=== PATIENT | female | born 2000 | race American Indian/Alaskan Native ===

== ENCOUNTER 2018-09-21 16:17 | Emergency (ER) | payer MEDICAID ==
[2018-09-21] MEDS ORDERED: SUBLIMAZE IV ONE (16:26)
[2018-09-21] MEDS ORDERED: NACL 0.9% 1000 ML 1,000 ML IV ONE (16:26)
--- NOTE | 2018-09-21 16:27 | Emergency Department Report ---
ED Female HPI - General Chief complaint: Vaginal Bleeding Stated complaint: MISCARRIAGE Time Seen by Provider: 09/21/18 16:21 Source: patient, family, EMS (ems notes not available at time of chart dictation) Mode of arrival: Stretcher Limitations: No Limitations - History of Present Illness Initial comments: This is a 18-year-old female. She is 3, para 0. Last menstrual period is June 03. Follows with " [facility]" mobile tester, also following with [facility], although she is not certain why. She reports no significant or chronic medical conditions. She presents to the emergency room today with complaints of vaginal bleeding, cramping, and lower abdominal discomfort. Reports that she had an ultrasound yesterday at [place], which demonstrated "no heartbeat." She denies headache, neck pain, chest pain, upper abdominal pain, irritative, obstructive urinary symptoms. Has reportedly used one to 2 pads in the past few hours. Bleeding is intermittent, cramping is intermittent, does not radiate anywhere, and does not appear to have exacerbating or relieving factors. MD Complaint: vaginal bleeding, pelvic pain -: Gradual Location: suprapubic Radiation: non-radiating Severity: moderate Quality: cramping Consistency: intermittent Improves with: other Worsens with: other Are you Now?: Yes Associated Symptoms: vaginal bleeding, abdominal pain - Related Data Previous Rx's Medication Instructions Recorded Last Taken Type Acetaminophen [Tylenol Arthritis] 650 mg PO Q6HR PRN #30 tablet.er 09/21/18 Unknown Rx Ibuprofen [Motrin] 600 mg PO Q8H PRN #30 tablet 09/21/18 Unknown Rx Allergies Allergy/AdvReac Type Severity Reaction Status Date / Time No Known Allergies Allergy Unverified 03/31/14 22:06 ED Review of Systems ROS: Stated complaint: MISCARRIAGE Other details as noted in HPI Constitutional: malaise. denies: fever Eyes: denies: vision change ENT: denies: epistaxis Respiratory: denies: cough Cardiovascular: denies: chest pain Gastrointestinal: abdominal pain Genitourinary: abnormal menses. denies: dysuria Musculoskeletal: denies: back pain Skin: denies: lesions Neurological: weakness Psychiatric: anxiety ED Past Medical Hx - Social History Smoking Status: Current Every Day Smoker Substance Use Type: None - Medications Home Medications: Home Medications Medication Instructions Recorded Confirmed Last Taken Type Acetaminophen [Tylenol Arthritis] 650 mg PO Q6HR PRN #30 tablet.er 09/21/18 Unknown Rx Ibuprofen [Motrin] 600 mg PO Q8H PRN #30 tablet 09/21/18 Unknown Rx ED Physical Exam - General Limitations: No Limitations General appearance: alert, in no apparent distress, anxious - Head Head exam: Present: atraumatic, normocephalic - Eye Eye exam: Present: normal appearance, EOMI. Absent: nystagmus - ENT ENT exam: Present: normal exam, normal orophraynx, mucous membranes moist, normal external ear exam - Neck Neck exam: Present: normal inspection, full ROM. Absent: tenderness, meningismus - Respiratory Respiratory exam: Present: normal lung sounds bilaterally. Absent: respiratory distress - Cardiovascular Cardiovascular Exam: Present: regular rate, normal rhythm, normal heart sounds. Absent: bradycardia, tachycardia, irregular rhythm, systolic murmur, diastolic murmur, rubs, gallop - GI/Abdominal GI/Abdominal exam: Present: soft, tenderness, other (lower abdominal tenderness, minimal, no rebound, guarding or peritoneal signs, no isolated right lower quadrant tenderness, no right upper quadrant tenderness. Negative Fraire sign. Negative Rovsing exam.). Absent: distended, guarding, rebound, rigid, pulsatile mass - External exam: Present: normal external exam, other (chaperoned by nurse Britney Cook). Absent: erythema, swelling, lesions, lacerations, ecchymosis Speculum exam: Present: vaginal bleeding - Extremities Exam Extremities exam: Present: normal inspection, full ROM, other (2+ pulses noted in the bilateral upper, lower extremities. Compartments soft. No long bony tenderness. The pelvis is stable.). Absent: pedal edema, joint swelling, calf tenderness - Back Exam Back exam: Present: normal inspection, full ROM. Absent: tenderness, CVA tenderness (R), paraspinal tenderness, vertebral tenderness - Neurological Exam Neurological exam: Present: alert, oriented X3, CN II-XII intact, other (Extraocular movements intact. Tongue midline. No facial droop. Facial sensation intact to light touch in the V1, V2, V3 distribution bilaterally. 5 and 5 strength in 4 extremities.. Sensation is intact to light touch in 4 extremities.). Absent: motor sensory deficit - Psychiatric Psychiatric exam: Present: normal affect, normal mood - Skin Skin exam: Present: warm, dry, intact, normal color. Absent: rash ED Course Vital Signs 09/21/18 09/21/18 09/21/18 16:21 16:30 16:45 Temperature 98.2 F 98.4 F Pulse Rate 72 81 Respiratory 19 18 18 Rate Blood Pressure 141/75 139/66 [Left] - Reevaluation(s) Reevaluation #1: 09/21/18 16:55 Differential diagnosis, including but not limited to: Miscarriage, demise, placenta previa Assessment and plan: 18-year-old female who is approximately in her second trimester, with lower abdominal cramping, vaginal bleeding, and reported recent ultrasound at another hospital suggestive of demise. We will treat her pain, give her IV fluids, obtain ultrasound. We will reassess. Reevaluation #2: 09/21/18 18:21 While in the emergency room, patient passed large amount of tissue. Discussed with terminal clerk broadcast operations manager, Dr. Akins, who requested callback once ultrasound has resulted. Patient found to be Rh+. Reevaluation #3: 09/21/18 19:40 Urinalysis reviewed, not consistent with bacterial cystitis. Ultrasound interpretation is pending at this time. Reevaluation #4: 09/21/18 20:01 Ultrasound to my interpretation appears to have no intrauterine contents. Formal interpretation is pending. Discussed this with terminal clerk, Dr. René ryan. We agree that patient may be discharged if the ultrasound is formally interpreted is unremarkable, and the patient will be instructed to follow-up with her outpatient MOLD MAKER HELPER doctor within the next 24-48 hours for repeat evaluation and examination. Patient's formal ultrasound has been interpreted, and demonstrates no evidence of intrauterine . 09/21/18 20:02 ED Medical Decision Making - Lab Data Result diagrams: 09/21/18 16:35 09/21/18 16:35 Vital Signs 09/21/18 16:21 Temperature 98.2 F Pulse Rate 72 Respiratory 19 Rate Blood Pressure 141/75 [Left] Lab Results 09/21/18 Range/Units 16:35 WBC 13.6 H (4.5-11.0) K/mm3 RBC 4.35 (3.65-5.03) M/mm3 Hgb 12.6 (10.1-14.3) gm/dl Hct 38.4 (30.3-42.9) % MCV 88 (79-97) fl MCH 29 (28-32) pg MCHC 33 (30-34) % RDW 14.4 (13.2-15.2) % Plt Count 257 (140-440) K/mm3 Leukocytosis reviewed and appreciated, likely secondary to underlying physiology of . Critical care attestation.: If time is entered above; I have spent that time in minutes in the direct care of this critically ill patient, excluding procedure time. ED Disposition Clinical Impression: Miscarriage Disposition: DC-01 TO HOME OR SELFCARE Is pt being admited?: No Does the pt Need Aspirin: No Condition: Stable Instructions: Spontaneous Miscarriage (ED) Additional Instructions: Rest, and avoid heavy lifting. Avoid strenuous physical activities. Did not have sex or sexual activity. Take pain medications as needed/directed. Follow-up with your private MOLD MAKER HELPER physician, or any of the listed MOLD MAKER HELPER physicians within the next 1-2 days. Patient may continue to have bleeding and cramping. remnants were sent to the pathology lab today, please have your private MOLD MAKER HELPER doctor contact the medical records department to obtain formal pathology results. Return to the emergency room with any new, worsening or different symptoms. Referrals: [facility] [Provider Group] - 3-5 Days [facility] [Provider Group] - 3-5 Days [facility] [Provider Group] - 3-5 Days
[2018-09-21 16:52] LABS: Hematocrit 38.4 % (30.3-42.9); Hemoglobin 12.6 gm/dl (10.1-14.3); Mean Corpuscular HGB Conc 33 % (30-34); Mean Corpuscular Volume 88 fl (79-97); Platelet Count 257 K/mm3 (140-440); Red Blood Count 4.35 M/mm3 (3.65-5.03); Red Cell Distribution Width 14.4 % (13.2-15.2)
[2018-09-21 17:03] LABS: INR 0.99 (0.87-1.13)
[2018-09-21 17:54] LABS: Alanine Aminotransferase 12 units/L (7-56); Albumin 4.4 g/dL (3.9-5); BUN/Creatinine Ratio 11; Blood Urea Nitrogen 8 mg/dL (7-17); Calcium 9.5 mg/dL (8.4-10.2); Hemolysis Index 3
[2018-09-21 17:59] LABS: Bilirubin,Direct < 0.2 mg/dL (0-0.2)
--- NOTE | 2018-09-21 18:34 | History and Physical Report ---
History of Present Illness Date of examination: 09/21/18 Chief complaint: Vaginal bleeding History of present illness: 18yo female (EABx2)0 who presented to ED with pelvic pain and vaginal bleeding this am. See ED note Past History Past Medical History: No medical history Past Surgical History: No surgical history Medications and Allergies Allergies Allergy/AdvReac Type Severity Reaction Status Date / Time No Known Allergies Allergy Unverified 03/31/14 22:06 Home Medications Medication Instructions Recorded Confirmed Last Taken Type No Known Home Medications [No 03/31/14 03/31/14 Unknown History Reported Home Medications] Exam - Constitutional Vitals: Temp Pulse Resp BP Pulse Ox 98.2 F 72 19 141/75 09/21/18 16:21 09/21/18 16:21 09/21/18 16:21 09/21/18 16:21 General appearance: Present: no acute distress - Abdominal General gastrointestinal: Present: soft, non-tender, non-distended Female genitourinary: Present: other (small blood in vagina, no active bleeding, cervix closed) - Psychiatric Psychiatric: appropriate mood/affect, intact judgment & insight, memory intact, cooperative - Neurologic Neurologic: CNII-XII intact Results - Labs CBC & Chem 7: 09/21/18 16:35 09/21/18 16:35 Labs: Abnormal lab results 09/21/18 09/21/18 09/21/18 Range/Units 16:35 16:35 16:35 WBC 13.6 H (4.5-11.0) K/mm3 Sodium 135 L (137-145) mmol/L Carbon Dioxide 21 L (22-30) mmol/L Glucose 102 H (65-100) mg/dL Total Creatine Kinase 186 H (30-135) units/L HCG, Quant 504.5 H (0-4) mIU/mL Assessment and Plan - Patient Problems (1) Vaginal bleeding Current Visit: Yes Status: Acute Plan to address problem: Patient had an US image with her name and the date of 09/13/2018. She states she was told there was no heart beat when she had that US. She thinks she passed tissue at home. Patient is stable, US pending. Will consider discharging home after US reviewed.
[2018-09-21 19:25] LABS: Mucus,Urine FEW /HPF
[2018-09-21 19:26] LABS: Bilirubin,Urine NEG (Negative); Blood,Urine LG (Negative); Color,Urine Yellow (Yellow); Protein,Urine <15 mg/dL mg/dL (Negative); RBC,Urine > 182.0 /HPF (0.0-6.0); Urobilinogen,Urine < 2.0 mg/dL (<2.0)
[2018-09-21 19:33] LABS: Amphetamine Screen,Urine PRESUMPTIVE NEGATIVE; Benzodiazepines Screen,Urine PRESUMPTIVE NEGATIVE; Cocaine Screen,Urine PRESUMPTIVE NEGATIVE; Methadone Screen,Urine PRESUMPTIVE NEGATIVE; Opiate Screen,Urine PRESUMPTIVE NEGATIVE
--- NOTE | 2018-09-21 20:02 | Ultrasound Report ---
FINAL REPORT PROCEDURE: OB US < 14 WKS SINGLE FETUS TECHNIQUE: Real-time transabdominal sonography of the uterus, placenta, amniotic fluid, adnexa, and fetus was performed with image documentation. Measurements were obtained to determine age/size. M-mode Doppler was used to document heartbeat. CPT 00364 HISTORY: abd pain craming miscarriage COMPARISON: No prior studies are available for comparison. FINDINGS: The uterus measures 9.3 centimeters x 5.1 centimeters x 7.3 centimeters. The myometrium appears unifo rm. There are no uterine masses. The endometrial echo complex appears normal. The endometrium measure s approximately 11 millimeters in maximum thickness. There is no evidence of an intrauterine gestatio nal sac. Correlation with a quantitative beta HCG value is suggested. Both ovaries appear normal in s ize. There is normal color flow signal in both ovaries. IMPRESSION: No evidence of an intrauterine .
[2018-09-21 20:35] VITALS: BP 147/78
[2018-09-21 20:38] LABS: Cannabinoid Screen,Urine PRESUMPTIVE POSITIVE
== END 2018-09-21 20:23 | disposition home or self-care (01) ==
LOC: ED 16:17
DX: O03.9 Complete or unspecified spontaneous abortion without complication (principal); Z3A.15 15 weeks gestation of pregnancy; F17.200 Nicotine dependence, unspecified, uncomplicated
CPT/HCPCS: 36415; 76805; 80048; 80076; 80307; 81001; 82550; 84702; 85027; 85610; 85730; 86850; 86900; 86901; 88305; 96374; 99285; J3010; J7030; 76801

== ENCOUNTER 2020-02-10 17:32 | Emergency (ER) | payer MEDICAID ==
--- NOTE | 2020-02-10 18:00 | Event Note ---
ED Screening Note ED Screening Note: WITH VAG BLEED This initial assessment/diagnostic orders/clinical plan/treatment(s) is/are subject to change based on patients health status, clinical progression and re- assessment by fellow clinical providers in the ED. Further treatment and workup at subsequent clinical providers discretion. Patient/guardian urged not to elope from the ED as their condition may be serious if not clinically assessed and managed. Initial orders include: ROMAN FOURNIER
[2020-02-10 18:10] LABS: Hematocrit 38.1 % (30.3-42.9); Mean Corpuscular HGB Conc 32 % (30-34); Mean Corpuscular Volume 88 fl (79-97); Platelet Count 207 K/mm3 (140-440); Red Blood Count 4.33 M/mm3 (3.65-5.03); Red Cell Distribution Width 14.5 % (13.2-15.2)
[2020-02-10 18:24] LABS: Alanine Aminotransferase 8 units/L (7-56); Albumin 4.2 g/dL (3.9-5); BUN/Creatinine Ratio 8; Blood Urea Nitrogen 8 mg/dL (7-17); Hemolysis Index 7
[2020-02-10 19:33] VITALS: BP 125/99
[2020-02-10 21:46] LABS: Bilirubin,Urine NEG (Negative); Blood,Urine LG (Negative); Color,Urine Amber (Yellow); Mucus,Urine 3+ /HPF; Sperm,Urine 2+ /HPF (NP); Urobilinogen,Urine < 2.0 mg/dL (<2.0)
[2020-02-10 21:53] LABS: RBC,Urine > 182.0 /HPF (0.0-6.0); WBC,Urine > 182.0 /HPF (0.0-6.0)
--- NOTE | 2020-02-10 22:02 | Ultrasound Report ---
TRANSABDOMINAL AND TRANSVAGINAL OB PELVIC ULTRASOUND INDICATION / CLINICAL INFORMATION: Heavy vaginal bleeding. COMPARISON: None available. FINDINGS: Transabdominal: The uterus measures 7.2 x 3.7 x 5.4 cm. The endometrial stripe measures 11 mm AP. I d o not identify an intrauterine gestational sac. The ovaries are not seen. There is no evidence of adn exal mass or free fluid. Images of the urinary bladder are normal. Transvaginal: The endometrial stripe measures 8.9 mm AP. There is no evidence of an intrauterine gest ational sac. No fibroids are seen. The right ovary measures 2.8 x 1.6 x 2.4 cm and the left ovary 3.2 x 1.7 x 2.3 cm. There is normal blood flow to both ovaries on Doppler exam. I see no evidence of adn exal mass or free fluid. IMPRESSION: No evidence of intrauterine or extrauterine sonographically. Signer Name: Fred Chinchilla MD Signed: 02/10/2020 9:58 PM Workstation Name: [id number]
--- NOTE | 2020-02-10 22:15 | Emergency Department Report ---
ED Female HPI - General Chief complaint: Vaginal Bleeding Stated complaint: PREG AND BLEEDING Source: patient Mode of arrival: Ambulatory Limitations: No Limitations - History of Present Illness Initial comments: Patient is a A6 [id number] -[place] female who is approximately 4 weeks gestation who presents to the ED with complaint of acute onset persistent heavy vaginal bleeding for the last 8 hours. Patient states that she started having vaginal bleeding and did the home-based urine test which was positive, and she decided come to the ED for evaluation. Patient however states that her LMP was January 06, 2020. Patient also complains of mild suprapubic cramps with the vaginal bleeding. Patient denies dysuria, dizziness, syncope, nausea, vomiting, diarrhea, abdominal pain, headache, chest pain, shortness of breath, fever, chills, lightheadedness or low back pain. MD Complaint: vaginal bleeding, other ( test postive) -: Sudden, hour(s) (8) Location: suprapubic, other (VAGINAL) Radiation: non-radiating Severity: moderate Severity scale (0 -10): 6 Quality: cramping, aching Improves with: none Worsens with: none Are you Now?: Yes (Approx 3-4 weeks gestation) Associated Symptoms: denies other symptoms, vaginal bleeding. denies: abdominal pain, nausea/vomiting, fever/chills, headaches, dysuria, hematuria, rash, seizure, shortness of breath, syncope - Related Data Sexually active: Yes : 7 Para: 0 A: 6 Previous Rx's Medication Instructions Recorded Last Taken Type Acetaminophen [Tylenol Arthritis] 650 mg PO Q6HR PRN #30 tablet.er 09/21/18 Unknown Rx Ibuprofen [Motrin] 600 mg PO Q8H PRN #30 tablet 09/21/18 Unknown Rx Acetaminophen [Tylenol] 500 mg PO Q6HR PRN #20 tablet 02/10/20 Unknown Rx cephALEXin [Keflex] 500 mg PO Q8HR #30 cap 02/10/20 Unknown Rx Allergies Allergy/AdvReac Type Severity Reaction Status Date / Time No Known Allergies Allergy Unverified 03/31/14 22:06 ED Review of Systems ROS: Stated complaint: PREG AND BLEEDING Other details as noted in HPI Constitutional: denies: chills, fever Eyes: denies: eye pain, eye discharge, vision change ENT: denies: ear pain, throat pain Respiratory: denies: cough, shortness of breath, wheezing Cardiovascular: denies: chest pain, palpitations Endocrine: no symptoms reported Gastrointestinal: abdominal pain (suprapubic pressure). denies: nausea, vomiting, diarrhea Genitourinary: abnormal menses (heavy vaginal bleeding). denies: urgency, dysuria, discharge Musculoskeletal: denies: back pain, joint swelling, arthralgia Skin: denies: rash, lesions Neurological: denies: headache, weakness, paresthesias Psychiatric: denies: anxiety, depression Hematological/Lymphatic: denies: easy bleeding, easy bruising ED Past Medical Hx - Past Medical History Previous Medical History?: No - Surgical History Past Surgical History?: No - Social History Smoking Status: Current Every Day Smoker - Medications Home Medications: Home Medications Medication Instructions Recorded Confirmed Last Taken Type Acetaminophen [Tylenol Arthritis] 650 mg PO Q6HR PRN #30 tablet.er 09/21/18 Unknown Rx Ibuprofen [Motrin] 600 mg PO Q8H PRN #30 tablet 09/21/18 Unknown Rx Acetaminophen [Tylenol] 500 mg PO Q6HR PRN #20 tablet 02/10/20 Unknown Rx cephALEXin [Keflex] 500 mg PO Q8HR #30 cap 02/10/20 Unknown Rx ED Physical Exam - General Limitations: No Limitations General appearance: alert, in no apparent distress - Head Head exam: Present: atraumatic, normocephalic, normal inspection - Eye Eye exam: Present: normal appearance, PERRL, EOMI Pupils: Present: normal accommodation - ENT ENT exam: Present: normal exam, normal orophraynx, mucous membranes moist, TM's normal bilaterally, normal external ear exam - Neck Neck exam: Present: normal inspection, full ROM - Respiratory Respiratory exam: Present: normal lung sounds bilaterally. Absent: respiratory distress, wheezes, rhonchi, chest wall tenderness, accessory muscle use, decreased breath sounds, prolonged expiratory - Cardiovascular Cardiovascular Exam: Present: regular rate, normal rhythm, normal heart sounds. Absent: systolic murmur, diastolic murmur, rubs, gallop - GI/Abdominal GI/Abdominal exam: Present: soft, normal bowel sounds. Absent: tenderness, guarding, rebound, hyperactive bowel sounds, hypoactive bowel sounds, organomegaly - Bi-manual exam: Present: other (Pelvic exam deferred, patient prefers Zoe/Insurance Salesperson) - Extremities Exam Extremities exam: Present: normal inspection, full ROM, normal capillary refill - Back Exam Back exam: Present: normal inspection, full ROM. Absent: tenderness, CVA tenderness (R), muscle spasm, paraspinal tenderness, vertebral tenderness - Neurological Exam Neurological exam: Present: alert, oriented X3, CN II-XII intact, normal gait, reflexes normal - Psychiatric Psychiatric exam: Present: normal affect, normal mood - Skin Skin exam: Present: warm, dry, intact, normal color. Absent: rash ED Course Vital Signs 02/10/20 19:32 Temperature 98.3 F Pulse Rate 83 Respiratory 16 Rate Blood Pressure 125/99 O2 Sat by Pulse 100 Oximetry ED Medical Decision Making - Lab Data Result diagrams: 02/10/20 17:51 02/10/20 17:51 - Radiology Data Radiology results: report reviewed, image reviewed Findings [facility] [address] [place] [address] Ultrasound Report Signed Patient: MAYLIN HERNADNEZ MR#: [id number] 4 : 2000 Acct:[id number] Age/Sex: 19 / F ADM Date: 02/10/20 Loc: ED Attending Dr: Ordering Physician: TALA MORENO Date of Service: 02/10/20 Procedure(s): OB transvaginal Accession Number(s): [id number] cc: TALA MORENO TRANSABDOMINAL AND TRANSVAGINAL OB PELVIC ULTRASOUND INDICATION / CLINICAL INFORMATION: Heavy vaginal bleeding. COMPARISON: None available. FINDINGS: Transabdominal: The uterus measures 7.2 x 3.7 x 5.4 cm. The endometrial stripe measures 11 mm AP. I do not identify an intrauterine gestational sac. The ovaries are not seen. There is no evidence of adnexal mass or free fluid. Images of the urinary bladder are normal. Transvaginal: The endometrial stripe measures 8.9 mm AP. There is no evidence of an intrauterine gestational sac. No fibroids are seen. The right ovary measures 2.8 x 1.6 x 2.4 cm and the left ovary 3.2 x 1.7 x 2.3 cm. There is normal blood flow to both ovaries on Doppler exam. I see no evidence of adnexal mass or free fluid. IMPRESSION: No evidence of intrauterine or extrauterine sonographically. Signer Name: Fred Chinchilla MD Signed: 02/10/2020 9:58 PM Workstation Name: [id number] Transcribed By: RT Dictated By: Fred Chinchilla MD Electronically Authenticated By: Fred Chinchilla MD Signed Date/Time: 02/10/202157 DD/ 54 TD/TT: - Medical Decision Making This is a A6 [id number] -[place]cu[place] female who is approximately 4 weeks gestation who presents to the ED with complaint of acute onset persistent heavy vaginal bleeding for the last 8 hours. Patient states that she started having vaginal bleeding and did the home-based urine test which was positive, and she decided come to the ED for evaluation. Patient however states that her LMP was January 06, 2020. Patient also complains of mild suprapubic cramps with the vaginal bleeding. In the ED, patient is alert and oriented x3 and is not in any distress. Lab test results showed hCG quant of 8.38, and urinalysis showed significant urinary tract infection with budding yeast. The rest of the lab test results are nonactionable. The transabdominal and transvaginal ultrasound showed no evidence of intrauterine or extrauterine sonographically. Patient was treated for pain in the ED and also given initial oral antibiotics in the ED. Patient was discharged home on antibiotics and pain medications and advised to return to the ED in 48 hours for repeat serial hCG quant to determine the viability of the given the low hCG quant at this time. Patient was advised to return to the ED immediately if her symptoms get worse. Patient was otherwise advised to follow-up with [facility] [employer] TE[facility] physician in 3 to 5 days for reevaluation. - Differential Diagnosis Threatened miscarriage; UTI; Subchorionic bleed; Ovarian cysts; ectopic pre Critical care attestation.: If time is entered above; I have spent that time in minutes in the direct care of this critically ill patient, excluding procedure time. ED Disposition Clinical Impression: Threatened miscarriage in early , Vaginal bleeding affecting early , Acute urinary tract infection, Candidal vaginitis Disposition: -01 TO HOME OR SELFCARE Is pt being admited?: No Does the pt Need Aspirin: No Condition: Stable Instructions: Threatened Miscarriage (ED), Urinary Tract Infection in Women (ED), Vaginitis (ED) Additional Instructions: Your ultrasound results showed no intrauterine at this time. The hCG quant is low, showing 8.38, therefore return to the ED within 48 hours for serial hCG quant test to confirm the viability of the . Therefore maintain a complete pelvic rest, take Tylenol as needed for pain and return to the ED immediately if symptoms get worse. Otherwise follow-up with your EAR[facility] [employer] START TEACH[facility] physician in 3 to 5 days as advised. Prescriptions: Acetaminophen [Tylenol] 500 mg PO Q6HR PRN #20 tablet PRN Reason: Pain , Severe (7-10) cephALEXin [Keflex] 500 mg PO Q8HR #30 cap Referrals: KATE NOWAK MD [Staff Physician] - 3-5 Days Time of Disposition: 22:26 Print Language: MONTSERRATIAN
[2020-02-10] MEDS ORDERED: METOCLOPRAMIDE 10 MG TAB PO ONE (22:29)
[2020-02-10] MEDS ORDERED: ACETAMINOPHEN 500 MG TAB PO ONE (22:29)
[2020-02-10] MEDS ORDERED: cephALEXin 500 MG CAP PO ONE (22:29)
== END 2020-02-10 23:02 | disposition home or self-care (01) ==
LOC: ED 17:32
DX: O20.0 Threatened abortion (principal); O23.41 Unspecified infection of urinary tract in pregnancy, first trimester; O23.591 Infection of other part of genital tract in pregnancy, first trimester; Z3A.01 Less than 8 weeks gestation of pregnancy
CPT/HCPCS: 36415; 76801; 76817; 80053; 81001; 84702; 85027; 86900; 86901

== ENCOUNTER 2020-04-07 06:54 | Emergency (ER) | payer SELFPAY ==
[2020-04-07 07:24] VITALS: BP 104/35
--- NOTE | 2020-04-07 08:31 | Emergency Department Report ---
Chief Complaint: Sore Throat Stated Complaint: SORE THROAT/RUNNY NOSE/COUGH Time Seen by Provider: 04/07/20 08:27 - Exam Vital Signs: Vital Signs 04/07/20 07:21 Temperature 98.4 F Pulse Rate 83 Respiratory 16 Rate Blood Pressure 104/35 Physical Exam: Gen: alert oriented NAD Cardic: regular rate and rhythm no murmurs appreciated Resp: Clear to auscultation bilateral no wheezing no rales or rhonchi. Abdomen: Soft nontender nondistended normal bowel sounds. no facial droop. Tongue midline. Extraocular movements intact bilaterally. Facial sensation intact to light touch in V1, V2, V3 distribution bilaterally strength 5 out of 5 in all extremities. Sensation intact to light touch in 4 extremities. MSE screening note: Focused history and physical exam performed. Due to findings the following was ordered: ED Disposition for MSE Disposition: MED SCREENING EXAM-LEFT Is pt being admited?: No Does the pt Need Aspirin: No Condition: Stable Additional Instructions: Recommend taking [id number]-eql-pslniyt Claritin or Zyrtec's daily for the next 30 days you can also use Nasonex or Flonase nasal spray. Tylenol or ibuprofen for headache. Referrals: [facility] [Provider Group] - 3-5 Days Forms: Work/School Release Form(ED)
== END 2020-04-07 08:37 | disposition left against medical advice (07) ==
LOC: ED 06:54
DX: J02.9 Acute pharyngitis, unspecified (principal); Z53.21 Procedure and treatment not carried out due to patient leaving prior to being seen by health care provider

== ENCOUNTER 2021-01-04 08:10 | Emergency (ER) | payer SELFPAY ==
[2021-01-04 08:27] VITALS: BP 116/61
== END 2021-01-04 08:50 | disposition left against medical advice (07) ==
LOC: ED 08:10
DX: N89.8 Other specified noninflammatory disorders of vagina (principal); Z53.21 Procedure and treatment not carried out due to patient leaving prior to being seen by health care provider